=== PATIENT | male | born 1980 | race Caucasian/White ===

== ENCOUNTER 2022-06-25 18:09 | Emergency (ER) | payer BC ==
[2022-06-25 18:35] VITALS: BP 150/87; PULSE 91
[2022-06-25 19:07] LABS: STREP A BY PCR NOT DETECTED (NOT DETECT)
[2022-06-25 19:23] LABS: CORONAVIRUS COVID-19 NAA NEGATIVE (NEGATIVE); RESPIRATORY SYNCYTIAL VIR NAA NEGATIVE (NEGATIVE)
== END 2022-06-25 19:43 | disposition home or self-care (01) ==
LOC: VM.ED 18:09
DX: J02.9 Acute pharyngitis, unspecified (principal); Z88.5 Allergy status to narcotic agent; Z20.822 Contact with and (suspected) exposure to COVID-19
CPT/HCPCS: 0241U; 87651-QW; 99283